=== PATIENT | male | born 1960 | race Caucasian/White ===

== ENCOUNTER → 2016-06-06 | Day surgery (SDC) | payer BC ==
[~2016-06-06] MED LIST: LORTAB 7.5-5001 TAB PO; NEXIUM PO; ZOLOFT PO; ZOLOFT50 MG PO; ZYLOPRIM100 MG PO
--- NOTE | ~2016-06-06 | OR ---
Unit #: [id number] #: [id number] Patient: JERMAINE HICKS [id number] [facility]. [address] [place], [place] [address] [id number] O MR#: [id number] NAME: JERMAINE HICKS ROOM: Date of Procedure: 06/06/2016 Admission Date: 06/06/2016 Surgeon: Koby Jimenez Jr., M.D. : 1960 Attending Physician: Koby Jimenez Jr., M.D. Primary Care Physician: oSraya Pompa M.D. OPERATIVE REPORT INDICATIONS FOR PROCEDURE The patient is a 55-year-old white male, recently presented to the office complaining of a bulge and sensitivity in the left inguinal area. On examination, he was noted to have a left inguinal hernia, but no evidence of any on the right. He is brought in this time for repair of this at his request. He understands the procedure including risks, including that of recurrence, infection, chronic pain with nerve injury, and recurrence, and consents. PREOPERATIVE DIAGNOSIS Left indirect inguinal hernia. POSTOPERATIVE DIAGNOSIS Left indirect inguinal hernia. ANESTHESIA General with LMA and 0.5% Marcaine with epinephrine locally as a field block. PROCEDURE PERFORMED Left inguinal hernia repair using ligation with plug and patch technique. DESCRIPTION OF PROCEDURE The patient was positioned in the supine position. After being anesthetized, he was prepped and draped in routine fashion for left inguinal hernia repair. Left inguinal area was locally blocked with 0.5% Marcaine with epinephrine as a field block and at this point, a transverse incision approximately 3 to 4 inch in length was made over the left inguinal canal. This was carried down through the subcutaneous tissue, Anai and Camper fascia down to the external oblique fascia. The fibers of external oblique were split from the external ring up to the internal ring and the cord structures were elevated from the pubic tubercle freed back to the internal ring. Multiple cremasteric fibers were divided and an indirect sac was found. It was very small, isolated, opened, and sutured with 0 Ethibond suture under direct visualization. After this was complete, a small lipoma of the cord was removed with clamping the base and ligated with 2-0 silk suture. There was a defect in the internal ring area. Large plug was placed and tacked circumferentially with interrupted 0 Ethibond sutures. The patch was placed over the floor of the inguinal canal, which was slightly weak and sutured in place with interrupted 0 Ethibond sutures. The wound was irrigated with antibiotic solution. The cord structures and ilioinguinal nerve were placed back beneath the Unit #: [id number] #: [id number] Patient: JERMAINE HICKS external oblique fascia. There was no entrapment of the nerve. The external oblique fascia was closed with a continuous 3-0 Vicryl suture. Anai and Camper fascia was approximated with interrupted 3-0 Vicryl sutures. Skin edges approximated with stainless-steel skin clips and skin stapling device. Sterile dressings were applied externally. Estimated blood loss less than 50 mL. The patient received less than 1000 mL crystalloid solution during the procedure. Sponges and instrument counts were correct x3. No drains used. No complications. The patient was taken to the recovery room with stable vital signs in satisfactory condition. Dictated by... Koby Jimenez Jr., M.D. JMB/angeline TD: 06/06/2016 23:04 JOB #: [id number] CC: Soraya Pompa M.D. OPERATIVE REPORT X Koby Jimenez MD X PROCEDURE OPERATIVE NOTE
== END | disposition home or self-care (01) ==
LOC: CSUR 07:13
DX: K40.90 Unilateral inguinal hernia, without obstruction or gangrene, not specified as recurrent (principal); M12.9 Arthropathy, unspecified; M10.9 Gout, unspecified; Z90.49 Acquired absence of other specified parts of digestive tract; Z88.6 Allergy status to analgesic agent; Z88.0 Allergy status to penicillin; Z82.49 Family history of ischemic heart disease and other diseases of the circulatory system; Z83.3 Family history of diabetes mellitus; Z87.891 Personal history of nicotine dependence; Z98.52 Vasectomy status
CPT/HCPCS: C1781; J1100; J1885; J2250; J2405; J3010; J3370